=== PATIENT | male | born 1990 | race Caucasian/White ===

== ENCOUNTER 2017-05-25 04:41 | Emergency (ER) | payer OTHER ==
[~2017-05-25 04:41] MED LIST: Z.0.NO CURRENT MEDS
[2017-05-25 04:42] VITALS: BP 120/83; PULSE 90; RESP 18; TEMP 97.9; O2SAT 100
[2017-05-25] MEDS ORDERED: FLUT1SPR5 EACH NARE (04:59)
[2017-05-25] MEDS ORDERED: AUGM875T3 PO (04:59)
--- NOTE | 2017-05-25 05:03 | PD ---
HPI Chief Complaint: ENT Complaint Time Seen by Provider: 04:58 Travel History International Travel<30 days: No Contact w/Intl Traveler<30days: No Traveled to known affect area: No History of Present Illness HPI 26-year-old male presents for evaluation of right ear pain. The patient works as an commercial pilot. He developed a sore throat during his flight several hours ago. He developed right ear pain shortly afterwards. The sore throat has resolved but the ear pain has persisted which prompted evaluation. Initially he felt that it may just be the pressure change of flight however he attempted Valsalva maneuvers but symptoms persisted. Pain is an aching pain which is constant. Denies cough or congestion, recent swimming, fevers or chills, ear drainage. No other complaints. PFSH Past Medical History Medical History: Denies Significant Hx Diminished Hearing: No Immunizations Current: Yes Tetanus Vaccination: < 5 Years Past Surgical History Appendectomy: Yes Social History Alcohol Use: Yes (occasionally) Tobacco Use: No Substance Use: No Allergies-Medications (Allergen,Severity, Reaction): Coded Allergies: No Known Allergies (Verified , 06/10/09) Reported Meds & Prescriptions Reported Meds & Active Scripts Active Flonase Nasal [place] (Fluticasone Nasal [place]) 50 Mcg/Act [place] 100 Mcg EACH NARE BID Augmentin (Amoxicillin-Clavulanate) 875-125 Mg Tab 1 Tab PO BID 10 Days Review of Systems Except as stated in HPI: all other systems reviewed are Neg Physical Exam Narrative GENERAL: Well-developed well-nourished male in no acute distress SKIN: Warm and dry. HEAD: Atraumatic. Normocephalic. EYES: Pupils equal and round. No scleral icterus. No injection or drainage. ENT: No nasal bleeding or discharge. Mucous membranes pink and moist. The right tympanic membrane is bulging and erythematous but intact without perforation. Left Tympanic membrane appears normal. NECK: Trachea midline. No JVD. No lymphadenopathy. CARDIOVASCULAR: Regular rate and rhythm. No murmur appreciated. RESPIRATORY: No accessory muscle use. Clear to auscultation. Breath sounds equal bilaterally. Data Data Last Documented VS Vital Signs Date Time Temp Pulse Resp B/P (MAP) Pulse Ox O2 Delivery O2 Flow Rate FiO2 05/25/17 04:42 97.9 90 18 120/83 (95) 100 MDM Medical Decision Making Medical Screen Exam Complete: Yes Emergency Medical Condition: Yes Medical Record Reviewed: Yes Differential Diagnosis Otitis media superlative, otitis media with effusion, eustachian tube dysfunction, perforated tympanic membrane, mastoiditis, referred dental pain Narrative Course Physical examination is consistent with right otitis media, superlative. The patient is being discharged with Flonase, Augmentin. Recommend over-the- counter Tylenol/Motrin/nasal decongestants for symptom relief. Diagnosis Primary Impression: Right otitis media Qualified Codes: H66.001 - Acute suppurative otitis media without spontaneous rupture of ear drum, right ear Additional Instructions: Medication as prescribed. [id number] nasal decongestants. [id number] Tylenol/Motrin for symptom relief per dosing instructions on the bottle. Return for any emergent medical conditions. Med/Other Pt SpecificInfo: Prescription(s) given Scripts Fluticasone Nasal [place] (Flonase Nasal [place]) 50 Mcg/Act [place] 100 MCG EACH NARE BID for PRESSURE, #1 BOTTLE 0 Refills Prov: Nhung Lau MD 05/25/17 Amoxicillin-Clavulanate (Augmentin) 875-125 Mg Tab 1 TAB PO BID for Infection for 10 Days, #10 TAB 0 Refills Prov: Nhung Lau MD 05/25/17 Disposition: 01 DISCHARGE HOME Condition: Stable Dwain Bond May 25, 2017 05:03
== END 2017-05-25 05:38 | disposition home or self-care (01) ==
LOC: NEPD 04:41
DX: H66.001 Acute suppurative otitis media without spontaneous rupture of ear drum, right ear (principal)
CPT/HCPCS: 99283